=== PATIENT | female | born 1985 | race Caucasian/White ===

== ENCOUNTER 2017-11-10 22:16 | Emergency (ER) | payer MEDICAID ==
[2017-11-10] MEDS ORDERED: PREDNISONE 20 MG TAB PO ONE (22:41)
--- NOTE | 2017-11-10 22:41 | Emergency Department Record ---
History of Present Illness - General Chief complaint: Rash Stated complaint: RASH AND WELTS BOTH LEGS Time Seen by Provider: 11/10/17 22:39 Source: Patient Mode of Arrival: Ambulatory Limitations: No limitations - History of Present Illness Initial comments: 32 yo female presents to ED for evaluation of a rash to the extremities that began several days ago. Patient reports itching symptoms, but denies taking anything at home for her symptoms. Patient does reports working outdoors cutting bushes and plants prior to rash beginning. Patient denies health problems at her baseline. MD complaint: Rash Onset/Timin -: Days(s) Location: Generalized, LUE, RUE, LLE, RLE Consistency: Constant Improves with: None Worsens with: None Context: None Associated symptoms: Itching Treatments Prior to Arrival: OTC topical medication - Related Data Previous Rx's Medication Instructions Recorded Prednisone [Prednisone 20Mg] 20 mg PO BID #15 tab 11/10/17 Allergies Allergy/AdvReac Type Severity Reaction Status Date / Time amoxicillin [Amoxicillin] Allergy HIVES Verified 11/10/17 22:31 sulfamethoxazole Allergy RASH Verified 11/10/17 22:31 [From Bactrim] trimethoprim [From Bactrim] Allergy RASH Verified 11/10/17 22:31 Travel Screening - Travel/Exposure Within Last 30 Days Have you traveled within the last 30 days?: No - Travel/Exposure Within Last Year Have you traveled outside the [place] in the last year?: No - Additonal Travel Details Have you been exposed to anyone with a communicable illness?: No - Travel Symptoms Symptom Screening: None Review of Systems Constitutional: Denies: Chills, Fever, Malaise, Night sweats Eyes: Denies: Eye discharge, Eye pain ENT: Denies: Congestion, Ear pain, Epistaxis Respiratory: Denies: Cough, Dyspnea Cardiovascular: Denies: Chest pain, Dyspnea on exertion Endocrine: Denies: Fatigue, Heat or cold intolerance Gastrointestinal: Denies: Abdominal pain, Nausea, Vomiting Genitourinary: Denies: Incontinence, Retention Musculoskeletal: Denies: Arthralgia, Back pain Skin: Reports: Rash. 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) - RESPIRATORY Hx Respiratory Disorders: No - CARDIOVASCULAR Hx Cardio Disorders: No - NEURO Hx Neuro Disorders: No - GI Hx GI Disorders: No - Hx Genitourinary Disorders: Yes Hx Bladder Problem: Yes (hx of infection) - ENDOCRINE Hx Endocrine Disorders: No - MUSCULOSKELETAL Hx Musculoskeletal Disorders: No - PSYCH Hx Psych Problems: No - HEMATOLOGY/ONCOLOGY Hx Hematology/Oncology Disorders: No Family Medical History Any Significant Family History?: No Hx Cancer: Grandparents Hx Diabetes: Grandparents Physical Exam - General General Appearance: Alert, Oriented x3, Cooperative, No acute distress Limitations: No limitations - Head Head exam: Atraumatic, Normocephalic, Normal inspection Head exam detail: negative: Abrasion, Contusion, Mathews's sign, General tenderness, Hematoma, Laceration - Eye Eye exam: Normal appearance. negative: Conjunctival injection, Periorbital swelling, Periorbital tenderness, Scleral icterus - ENT Ear exam: negative: Auricular hematoma, Auricular trauma Nasal Exam: negative: Active bleeding, Discharge, Dried blood, Foreign body Mouth exam: negative: Drooling, Laceration, Muffled voice, Tongue elevation - Neck Neck exam: Normal inspection. negative: Meningismus, Tenderness - Respiratory Respiratory exam: Normal lung sounds bilaterally. negative: Rales, Respiratory distress, Rhonchi, Stridor - Cardiovascular Cardiovascular Exam: Regular rate, Normal rhythm, Normal heart sounds - GI/Abdominal GI/Abdominal exam: Soft. negative: Rebound, Rigid, Tenderness - Rectal Rectal exam: Deferred - exam: Deferred - Extremities Extremities exam: Other (Diffuse areas of erythema in linear lines to the extremities c/w contact dermatitis.). negative: Calf tenderness, Pedal edema - Back Back exam: Denies: CVA tenderness (R), CVA tenderness (L) - Neurological Neurological exam: Alert, Normal gait, Oriented X3 - Psychiatric Psychiatric exam: Normal affect, Normal mood - Skin Skin exam: Erythema, Rash Distribution of rash: RUE, LUE, RLE, LLE Description of rash: Erythematous Course Vital Signs 11/10/17 22:23 Temperature 98.5 F Pulse Rate [ 73 Pulse Ox Probe] Respiratory 24 Rate Blood Pressure 127/63 [Left Arm] Pulse Ox 99 - Reevaluation(s) Reevaluation #1: 11/10/17 22:45 Rash appears c/w contact dermatitis. Will initiate treatment with prednisone as directed with 10-day taper. Patient was also instructed to use Benadryl for her itching symptoms. Patient appears stable for discharge at this time. Disposition Disposition: Discharge Clinical Impression: Contact dermatitis Qualifiers: Contact dermatitis type: unspecified Contact dermatitis trigger: unspecified trigger Qualified Code(s): L25.9 - Unspecified contact dermatitis, unspecified cause Disposition: Home, Self-Care Condition: (2) Stable Instructions: Contact Dermatitis (ED) Additional Instructions: Return to ED if your symptoms worsen or if you have any concerns. Prednisone as directed. Follow-up with your family doctor in 3-5 days as directed. Prescriptions: Prednisone [Prednisone 20Mg] 20 mg PO BID #15 tab Forms: Patient Portal Access Time of Disposition: 22:46 Quality - Quality Measures Quality Measures: N/A - Blood Pressure Screening Does Patient Have Any of the Following: No Blood Pressure Classification: Pre-Hypertensive BP Reading Systolic Measurement: 127 Diastolic Measurement: 63 Screening for High Blood Pressure: < Pre-Hypertensive BP, F/U Documented > [ [id number]] Pre-Hypertensive Follow-up Interventions: Referral to alternative/primary care provider.
== END 2017-11-10 22:57 | disposition home or self-care (01) ==
LOC: ER 22:16
DX: L25.9 Unspecified contact dermatitis, unspecified cause (principal); Z87.891 Personal history of nicotine dependence
CPT/HCPCS: 99282; J7512

== ENCOUNTER 2018-01-13 05:58 | Day surgery (SDC) | payer MEDICAID ==
[2018-01-13] MEDS ORDERED: SEVOFLURANE 250 ML INH ONE (05:59)
[2018-01-13] MEDS ORDERED: KETOROLAC 30 MG/ML VIAL IVP ONE (05:59)
[2018-01-13] MEDS ORDERED: LIDOCAINE 2% MDV (20MG/ML) 20ML VIAL IV ONE (05:59)
[2018-01-13] MEDS ORDERED: MIDAZOLAM HCL 2MG/2ML VIAL IV ONE (05:59)
[2018-01-13] MEDS ORDERED: PROPOFOL 10 MG/ML VIAL IV ONE (05:59)
[2018-01-13 06:23] LABS: HEMATOCRIT 40.6 % (35.0-47.0); HEMOGLOBIN 12.1 gm/dl (11.6-16.0)
--- NOTE | 2018-01-14 06:22 | Operative Note ---
DATE: 01/13/2018. PREOPERATIVE DIAGNOSIS: Heavy menstrual bleeding and dysmenorrhea. POSTOPERATIVE DIAGNOSIS: Heavy menstrual bleeding and dysmenorrhea. PROCEDURE: DIAGNOSTIC HYSTEROSCOPY, DILATATION AND CURETTAGE, AND ENDOMETRIAL ABLATION WITH NOVASURE. SURGEON: Teresa Nettles D.O. ANESTHESIA: General, laryngeal mask airway. SPECIMEN: Endometrial curetting. ESTIMATED BLOOD LOSS: Minimal. FLUIDS: Per Anesthesia. DRAINS: A total of 50 mL of clear, yellow urine. FINDINGS: Bilateral ossea visualized. Anterior uterine wall fluffy. Uterus anteverted and sounded to 9.0 cm. DESCRIPTION OF PROCEDURE: The patient was taken to the operating room where general anesthesia was obtained without difficulty. She was prepped and draped in a normal, sterile fashion in the dorsal lithotomy position. A weighted speculum was placed in the patient's vagina, and the anterior lip of the cervix was grasped with a single-tooth tenaculum. The cervix was gently dilated with Calos's dilators and sounded to 9.0 cm. The hysteroscope was then primed according to protocol and gently introduced into the uterus and fundus with findings as noted above. Pictures were taken. Both ossea were seen. The hysteroscope was removed, and the cervix was then dilated to allow for the NovaSure device. Sharp curettage was performed circumferentially until a gritty texture was noted. The NovaSure device was then primed according to protocol and set at a length of 4.5 cm. It was gently introduced to the fundus and opened. The width was measured at 2.5 cm. The NovaSure device was then activated after a cavity assessment was successful. It ran for 1 minute and 55 seconds at a power of 65. Afterward the device was cooled. It was retracted and moved to the endometrial cavity. The single-tooth tenaculum was removed from the anterior lip of the cervix. Excellent hemostasis was noted. All instruments were removed from the vagina. The patient tolerated the procedure well. Sponge and lap counts were correct. The patient was taken to the recovery room awake and in stable condition. JOB NUMBER: [id number] MTDD
== END 2018-01-13 08:50 | disposition home or self-care (01) ==
LOC: SUR 05:58
PROVIDERS: ATTEND Student in an Organized Health Care Education/Training Program
DX: N92.0 Excessive and frequent menstruation with regular cycle (principal); N94.6 Dysmenorrhea, unspecified; E78.00 Pure hypercholesterolemia, unspecified
CPT/HCPCS: 81025; 85014; 85018; J1885